=== PATIENT | female | born 1965 | race Two or more races ===

== ENCOUNTER → 2020-12-13 | Outpatient (CLI) | payer MEDICAID ==
[~2020-12-13] MED LIST: TRAM50TA PO
== END | disposition home or self-care (01) ==
LOC: LAB 16:38
PROVIDERS: ATTEND Neurological Surgery
DX: Z01.812 Encounter for preprocedural laboratory examination (principal); Z20.822 Contact with and (suspected) exposure to COVID-19
CPT/HCPCS: 87426

== ENCOUNTER 2020-12-14 11:08 | Inpatient (IN) | payer MEDICAID ==
[~2020-12-14] VITALS: Ht 157.5 cm; Wt 54.5 kg
[2020-12-14] MEDS ORDERED: TRAM50TA PO (11:33)
[2020-12-14] MEDS ORDERED: LIDOCAINE HCL/EPINEPHRINE 1%-EPI 1:100,000 20 ML VIAL ONE (12:00)
[2020-12-14] MEDS ORDERED: LACTATED RINGERS 1,000 ML IV SCH (12:00)
[2020-12-14] MEDS ORDERED: BACITRACIN 50,000 UNITS/VIAL ONE (12:01)
[2020-12-14] MEDS ORDERED: THROMBIN (BOVINE) 5000 UNITS/VIAL TOP ONE (12:01)
[2020-12-14 12:06] LABS: BASOPHILS % 0.9 % (0.0-2.0); EOSINOPHILS % 0.7 % (0.0-5.0); HEMATOCRIT. 43.1 % (36.0-48.0); HEMOGLOBIN. 14.7 g/dL (12.0-16.0); LYMPHOCYTES % 34.2 % (20.0-50.0); MEAN CORPUSCULAR HEMOGLOBIN 29.8 pg (28.0-32.0); MEAN CORPUSCULAR VOLUME 87.5 fL (81.0-99.0); MONOCYTES % 6.3 % (2.0-8.0); NEUTROPHILS % 57.9 % (40.0-76.0); PLATELET 264 x1000/uL (130-400); RED BLOOD CELL COUNT 4.93 mill/uL (4.2-5.4)
[2020-12-14 12:09] LABS: CLARITY URINE CLEAR (CLEAR); COLOR URINE YELLOW (YELLOW); KETONES URINE NEGATIVE (NEGATIVE); LEUKOCYTE ESTERASE URINE 1+ (NEGATIVE); NITRITE URINE NEGATIVE (NEGATIVE); OCCULT BLOOD URINE NEGATIVE (NEGATIVE); PROTEIN URINE NEGATIVE (NEGATIVE); SPECIFIC GRAVITY URINE 1.029 (1.005-1.030); UROBILINOGEN URINE 0.2 E.U./dL (0.2-1.0)
[2020-12-14] MEDS ORDERED: ACETAMINOPHEN 500MG TABLET ONE (12:09)
[2020-12-14 12:16] LABS: PARTIAL THROMBOPLASTIN TIME 32.1 sec (23.4-31.0); PROTHROMBIN TIME 10.9 sec (9.6-11.0)
[2020-12-14 12:27] LABS: CHLORIDE 112 mEq/L (98-107)
[2020-12-14] MEDS ORDERED: FENTANYL CITRATE/PF 50MCG/ML 2ML VIAL ONE (12:43)
[2020-12-14] MEDS ORDERED: PROPOFOL 200MG/20ML VIAL IV ONE (12:43)
[2020-12-14] MEDS ORDERED: MIDAZOLAM HCL 2 MG/2 ML VIAL ONE (12:43)
[2020-12-14] MEDS ORDERED: METOCLOPRAMIDE HCL 10MG/2ML VIAL ONE (12:45)
[2020-12-14] MEDS ORDERED: VECURONIUM BROMIDE 10 MG/VIAL IV ONE (12:45)
[2020-12-14] MEDS ORDERED: ONDANSETRON HCL 4MG/2ML INJ ONE (12:45)
[2020-12-14] MEDS ORDERED: SUCCINYLCHOLINE CHLORIDE 200MG/10ML IV ONE (12:46)
[2020-12-14] MEDS ORDERED: PHENYLEPHRINE HCL 10 MG/ML 1ML (IV VIAL) IV ONE (13:01)
[2020-12-14] MEDS ORDERED: LIDOCAINE HCL 1% 20ML VIAL (Pyxis) INJ ONE (13:03)
[2020-12-14] MEDS ORDERED: PROPOFOL 10MG/ML 100ML 100 ML IV ONE (13:25)
[2020-12-14] MEDS ORDERED: HYDROMORPHONE HCL/PF 2MG/ML (OR) ONE (13:55)
[2020-12-14] MEDS ORDERED: GLYCOPYRROLATE 0.2 MG/ML 2ML VIAL ONE (14:09)
[2020-12-14] MEDS ORDERED: NEOSTIGMINE METHYLSULFATE 1MG/ML 10 ML VIAL ONE (14:10)
[2020-12-14] MEDS ORDERED: KETOROLAC 30MG/ML VIAL ONE (14:29)
[2020-12-14] MEDS ORDERED: HYDROMORPHONE HCL/PF 2MG/ML CPJ IV PRN (14:30)
[2020-12-14] MEDS ORDERED: DIPHENHYDRAMINE 50MG/ML VIAL IV NR (14:30)
[2020-12-14] MEDS ORDERED: ONDANSETRON HCL 4MG/2ML INJ IV PRN (15:00)
[2020-12-14] MEDS ORDERED: HYDRALAZINE 20MG/ML VIAL IV PRN (15:15)
[2020-12-14 16:00] VITALS: BP 109/68
[2020-12-14 18:04] VITALS: BP 106/68
[2020-12-14] MEDS ORDERED: HYDRALAZINE 5 MG in SODIUM CHLORIDE 0.9% 49.75 ML IV PRN (18:30)
[2020-12-14] MEDS: MORPHINE SULFATE 4 MG/ML CPJ (NOT FOR IM USE) IV PRN ×2 (18:31→21:12)
[2020-12-14 20:00] VITALS: BP 104/57
[2020-12-14] MEDS: CEFAZOLIN 1000MG PREMIX 50 ML IV SCH (21:05)
[2020-12-14] MEDS ORDERED: CEFAZOLIN SODIUM 1000MG/VIAL IV SCH (22:00)
[2020-12-15] VITALS: BP 116/69
[2020-12-15] MEDS: DEXT 5%/LACTATED RINGERS 1,000 ML IV SCH ×3 (00:42→21:25)
[2020-12-15 04:00] VITALS: BP 105/66
[2020-12-15] MEDS: MORPHINE SULFATE 4 MG/ML CPJ (NOT FOR IM USE) IV PRN ×4 (05:19→21:47)
[2020-12-15] MEDS: CEFAZOLIN 1000MG PREMIX 50 ML IV SCH ×3 (05:20→21:25)
[2020-12-15 08:00] VITALS: BP 92/53
[2020-12-15 12:00] VITALS: BP 98/56
[2020-12-15 16:00] VITALS: BP 100/58
[2020-12-15 20:00] VITALS: BP 106/63
[2020-12-16] VITALS: BP 104/63
[2020-12-16] MEDS: MORPHINE SULFATE 4 MG/ML CPJ (NOT FOR IM USE) IV PRN ×4 (02:34→22:15)
[2020-12-16 04:00] VITALS: BP 114/65
[2020-12-16] MEDS: CEFAZOLIN 1000MG PREMIX 50 ML IV SCH ×3 (04:38→20:59)
[2020-12-16] MEDS: DEXT 5%/LACTATED RINGERS 1,000 ML IV SCH (07:00)
[2020-12-16 15:07] LABS: T4 FREE 1.42 ng/dL (0.76-1.46)
[2020-12-16 20:00] VITALS: BP 115/75
[2020-12-17] VITALS: BP 114/73
[2020-12-17 04:00] VITALS: BP 113/61
[2020-12-17] MEDS: HYDROCODONE/ACETAMINOPHEN 5/325MG TABLET PO PRN ×2 (05:55→13:00)
[2020-12-17 08:00] VITALS: BP 108/65
[2020-12-17 12:00] VITALS: BP 131/71
[2020-12-17 13:52] VITALS: BP 131/71
== END 2020-12-17 14:30 | disposition home health service (06) | DRG 304 ==
LOC: OR 11:08 → 6EST 17:39
PROVIDERS: ADMIT Neurological Surgery; ATTEND Neurological Surgery
PROC: 0SG00K1 Fusion of Lumbar Vertebral Joint with Nonautologous Tissue Substitute, Posterior Approach, Posterior Column, Open Approach (ICD-10-PCS; principal; 2020-12-14)
PROC: 01NB0ZZ Release Lumbar Nerve, Open Approach (ICD-10-PCS; 2020-12-14)
DX: M47.896 Other spondylosis, lumbar region (principal); M48.061 Spinal stenosis, lumbar region without neurogenic claudication; M43.16 Spondylolisthesis, lumbar region; G82.20 Paraplegia, unspecified; M54.5 Low back pain; Z98.890 Other specified postprocedural states
CPT/HCPCS: 36415; 72100; 76000; 80048; 80061; 81003; 83036; 84439; 84443; 84481; 85025; 86850; 86900; 95863; 95925; 95926; 95928; 95929; 95940; 97116; 97162; 97530; C1713; J0330; J0690; J1170; J1885; J2250; J2270; J2370; J2405; J2704; J2710; J2765; J3010; J3490; J7121; C1762